=== PATIENT | female | born 1960 | race Asian ===

== ENCOUNTER → 2016-11-07 | Day surgery (SDC) | payer OTHER ==
[~2016-11-07] MED LIST: BLOOD PRESSURE MED PO; DIZZINESS MED PO; JOINT PAIN MED PO; PAIN PO; [UNRECOGNIZED DRUG - OTHER] PO
--- NOTE | ~2016-11-07 | OR ---
Unit #: [id number] #: [id number] Patient: JES MIJARES [id number] [address] [id number] [id number] O MR#: [id number] NAME: JES MIJARES ROOM: Date of Procedure: 11/07/2016 Admission Date: 11/07/2016 Surgeon: Rupesh Perez M.D. : 1960 Attending Physician: Rupesh Perez M.D. Referring Physician: Rupesh Perez M.D. OPERATIVE REPORT PROCEDURE PERFORMED Colonoscopy with polypectomy. PREOPERATIVE DIAGNOSIS Screening colonoscopy. POSTOPERATIVE DIAGNOSES Descending colon polyps, internal hemorrhoids, diverticular disease. ANESTHESIA Monitored anesthesia care. DESCRIPTION OF PROCEDURE After adequate explanation of the risks, benefits and alternatives of the procedure, an informed consent was obtained from the patient. The patient was brought to the Endoscopy Suite. Intravenous sedation was administered. The patient was placed in the left lateral position. The colonoscope was introduced into the rectum and advanced to the cecum without difficulty. Once in the cecum, the anatomic landmarks were identified very well. The ileocecal valve was examined. The appendiceal orifice was examined. The scope was slowly withdrawn with the findings as noted in the next section. Adequate mucosal visualization of the colonic mucosa was done upon slow withdrawal. The scope was slowly withdrawn into the rectum and a retroflexed view was also obtained. The scope was withdrawn. The patient tolerated the procedure very well. FINDINGS CECUM: Normal. ILEOCECAL VALVE: Normal. APPENDICEAL VALVE: Normal ASCENDING COLON: Scattered diverticula. TRANSVERSE COLON: Scattered diverticula. DESCENDING COLON: A couple of diminutive polyps removed with snare polypectomy. No specimen obtained. SIGMOID COLON: Normal. RECTUM: Nonbleeding internal hemorrhoids. Scope withdrawal time was over 6 minutes. ASSESSMENT AND PLAN The patient is a 56-year-old female, who presented for screening colonoscopy. Noted to have evidence of diminutive descending colon Unit #: [id number] #: [id number] Patient: JES MIJARES polyps. Follow up colonoscopy in about 3 years is recommended. There is also evidence of diverticular disease and internal hemorrhoids. She will be encouraged to increase fiber intake. Dictated by... Delta Ca/philip TD: 11/08/2016 05:05 JOB #: [id number] CC: Louisa Fairchild M.D. OPERATIVE REPORT X Rupesh Perez MD X PROCEDURE OPERATIVE NOTE
== END | disposition home or self-care (01) ==
LOC: COPS 14:43
DX: Z12.11 Encounter for screening for malignant neoplasm of colon (principal); D12.4 Benign neoplasm of descending colon; K64.8 Other hemorrhoids; K57.30 Diverticulosis of large intestine without perforation or abscess without bleeding; I10 Essential (primary) hypertension; D64.9 Anemia, unspecified; M19.90 Unspecified osteoarthritis, unspecified site; Z79.899 Other long term (current) drug therapy